=== PATIENT | male | born 1970 | race Caucasian/White ===

== ENCOUNTER 2024-07-21 10:03 | Day surgery (SDC) | payer MEDICAID ==
[2024-07-21] MEDS: Lactated Ringers 1,000 ML IV SCH (10:35)
[2024-07-21] MEDS ORDERED: Propofol 200 MG/20 ML SDV ONE ×2 (10:39)
[2024-07-21] MEDS ORDERED: Phenylephrine 1% 10 MG/ML SDV ONE (10:39)
[2024-07-21] MEDS ORDERED: Midazolam 1 MG/ML 2 ML SDV ONE (10:39)
[2024-07-21] MEDS ORDERED: fentaNYL 50 MCG/ML SDV ONE ×2 (10:39)
[2024-07-21] MEDS ORDERED: Ketamine 200 MG/20 ML MDV ONE (10:39)
== END 2024-07-21 12:12 | disposition home or self-care (01) ==
LOC: CC.SDS 10:03
PROVIDERS: ATTEND Family Medicine
DX: Z12.11 Encounter for screening for malignant neoplasm of colon (principal); R19.5 Other fecal abnormalities; D12.0 Benign neoplasm of cecum; D12.3 Benign neoplasm of transverse colon; K51.40 Inflammatory polyps of colon without complications; I10 Essential (primary) hypertension; E11.42 Type 2 diabetes mellitus with diabetic polyneuropathy; K21.9 Gastro-esophageal reflux disease without esophagitis; F32.1 Major depressive disorder, single episode, moderate; E78.1 Pure hyperglyceridemia; E66.9 Obesity, unspecified; Z68.41 Body mass index [BMI] 40.0-44.9, adult; N40.1 Benign prostatic hyperplasia with lower urinary tract symptoms; Z79.84 Long term (current) use of oral hypoglycemic drugs; F17.210 Nicotine dependence, cigarettes, uncomplicated; Z79.899 Other long term (current) drug therapy
CPT/HCPCS: 00811; 45380; 45385; J2250; J2371; J2704; J3010; J3490; J7120